=== PATIENT | male | born 1980 | race Caucasian/White ===

== ENCOUNTER 2020-09-07 10:36 | Outpatient (CLI) | payer OTHER ==
--- NOTE | 2020-09-07 13:10 | RAD ---
PA AND LATERAL CHEST: Date: 09/07/2020 HISTORY: Dyspnea. FINDINGS: Film is of less than optimal inspiration. Heart size within normal limits. Interstitial changes in th e bases appear chronic in nature. IMPRESSION: Some mild chronic interstitial lung change. POS: JERARDO
== END 2020-09-07 10:37 | disposition home or self-care (01) ==
LOC: BICRAD 10:36
PROVIDERS: ATTEND Internal Medicine Nephrology
DX: R05 Cough (principal); J84.9 Interstitial pulmonary disease, unspecified
CPT/HCPCS: 71046

== ENCOUNTER 2020-09-20 11:21 | Outpatient (CLI) | payer OTHER ==
--- NOTE | 2020-09-20 11:39 | RAD ---
Chest 2 views HISTORY: Dyspnea. Interstitial thickening. Follow-up. Screening for viral disease. COMPARISON: 09/07/2020. FINDINGS: Cardiac silhouette and pulmonary vasculature are unremarkable. Interstitial markings accent uated by shallow inspiration. Mediastinum is midline. No confluent airspace consolidation, pneumothorax, or pleural fluid. IMPRESSION : No abnormalities are demonstrated.
== END 2020-09-20 11:22 | disposition home or self-care (01) ==
LOC: BICRAD 11:21
PROVIDERS: ATTEND Internal Medicine Nephrology
DX: Z11.59 Encounter for screening for other viral diseases (principal)
CPT/HCPCS: 71046

== ENCOUNTER 2021-02-05 14:14 | Outpatient (CLI) | payer OTHER | END 2021-02-05 14:15 | disposition home or self-care (01) | LOC: BICRAD 14:14 | PROVIDERS: ATTEND Internal Medicine Nephrology | DX: R06.00 Dyspnea, unspecified (principal) | CPT/HCPCS: 71046 ==

== ENCOUNTER 2022-09-05 10:29 | Outpatient (CLI) | payer BC | END 2022-09-05 10:30 | disposition home or self-care (01) | LOC: BICULT 10:29 | PROVIDERS: ATTEND Internal Medicine Nephrology | DX: R10.9 Unspecified abdominal pain (principal); N28.1 Cyst of kidney, acquired | CPT/HCPCS: 76700 ==

== ENCOUNTER 2022-09-18 12:26 | Outpatient (CLI) | payer BC | END 2022-09-18 12:27 | disposition home or self-care (01) | LOC: NM 12:26 | PROVIDERS: ATTEND Internal Medicine Nephrology | DX: R93.2 Abnormal findings on diagnostic imaging of liver and biliary tract (principal) | CPT/HCPCS: 78227; A9537 ==